=== PATIENT | female | born 1960 | race Caucasian/White ===

== ENCOUNTER 2018-09-07 10:12 | Outpatient (CLI) | payer OTHER | END 2018-09-07 10:19 | disposition home or self-care (01) | LOC: MAMO-SONO 10:12 | DX: M81.0 Age-related osteoporosis without current pathological fracture (principal); Z12.31 Encounter for screening mammogram for malignant neoplasm of breast; N63.10 Unspecified lump in the right breast, unspecified quadrant; N63.20 Unspecified lump in the left breast, unspecified quadrant; N64.4 Mastodynia; N83.00 Follicular cyst of ovary, unspecified side; N80.8 Other endometriosis; D25.9 Leiomyoma of uterus, unspecified; Z13.820 Encounter for screening for osteoporosis ==

== ENCOUNTER 2018-09-07 10:56 | Outpatient (CLI) | payer OTHER | END 2018-09-07 11:30 | disposition home or self-care (01) | LOC: NUCLEAR 10:56 | DX: N81.0 Urethrocele (principal); Z13.820 Encounter for screening for osteoporosis ==